=== PATIENT | female | born 1960 | race Caucasian/White ===

== ENCOUNTER 2019-12-14 09:24 | Emergency (ER) | payer OTHER ==
--- NOTE | 2019-12-14 09:28 | UC ---
Hand/Wrist HPI - HPI Summary HPI Summary: 59 yo female presents with LEFT thumb laceration. 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 Bandaged the area and came to . States last tetanus shot was decades ago. She is right handed. - History Of Current Complaint Stated Complaint: FINGER INJURY Time Seen by Provider: 12/14/19 09:28 Hx Obtained From: Patient Onset/Duration: Sudden Onset Severity Initially: Mild Severity Currently: Mild Pain Intensity: 2 Pain Scale Used: 0-10 Numeric - Allergies/Home Medications Allergies/Adverse Reactions: Allergies Allergy/AdvReac Type Severity Reaction Status Date / Time No Known Allergies Allergy Verified 12/14/19 09:30 Home Medications: Home Medications NK [No Home Medications Reported] 12/14/19 [History Confirmed 12/14/19] PMH/Surg Hx/FS Hx/Imm Hx - Additional Past Medical History Additional PMH: None - Surgical History Surgical History: Yes Surgery Procedure, Year, and Place: SPINAL FUSION - AGE 16 - SPONDOLYSIS - L4,L5 -S1 - Family History Known Family History: Positive: Cardiac Disease, Hypertension - Social History Lives: With Family Alcohol Use: Occasionally Substance Use Type: None Smoking Status (MU): Never Smoked Tobacco Review of Systems All Other Systems Reviewed And Are Negative: No Constitutional: Positive: Negative Skin: Positive: Other - Left thumb laceration Respiratory: Positive: Negative Cardiovascular: Positive: Negative Musculoskeletal: Positive: Negative Neurological: Positive: Negative Psychological: Positive: Negative Physical Exam - Summary Physical Exam Summary: GENERAL: NAD. WDWN. No pain distress. SKIN: LEFT THUMB: ulnar finger pad with 1.0cm macerated-like laceration with subcutaneous tissue exposed. No tendon or bony involvement appreciated. NECK: Supple. Nontender. No lymphadenopathy. CHEST: No accessory muscle use. Breathing comfortably and in no distress. CV: Pulses intact. Cap refill <2seconds NEURO: Alert. PSYCH: Age appropriate behavior. Triage Information Reviewed: Yes Vital Signs: Vital Signs: Temp Pulse Resp BP Pulse Ox 97 F 59 16 117/72 100 12/14/19 09:31 12/14/19 09:31 12/14/19 09:31 12/14/19 09:31 12/14/19 09:31 Vital Signs Reviewed: Yes Procedures - Laceration/Wound Repair 1 Location: upper extremity Description: Irregular Anesthesia: 2.0% Length, Depth and Shape: 1.0cm length Irrigated w/ Saline (ccs): 100 Laceration/Wound Explored: clean Closure: Single Layer Suture Type: Prolene - 5-0 Number of Sutures: 4 Layer Closure?: Yes Sterile Dressing Applied?: Yes Hand/Wrist Course/Dx - Course Course Of Treatment: The procedure was explained to the pt and all questions were answered. A time out was performed, witnessed, and signed. The area was irrigated with 20mL sterile saline. 1mL of 2% lidocaine without epi was administered and good anesthetization was achieved. The wound was explored. In the usual sterile fashion, FOUR 5-0 prolene interrupted sutures were placed. Homeostasis achieved. The wound was bandaged with telfa and tubegauze . Pt tolerated procedure well. tdap updated today - Differential Dx/Diagnosis Provider Diagnosis: Finger laceration Discharge ED - Sign-Out/Discharge Documenting (check all that apply): Patient Departure All imaging exams completed and their final reports reviewed: No Studies - Discharge Plan Condition: Stable Disposition: HOME Patient Education Materials: Care For Your Stitches (ED), Finger Laceration (ED ) Referrals: Janett Javier NP [Primary Care Provider] - Additional Instructions: 1) Please keep the area bandage, clean, dry, and intact for the next 24- 48hours. Then change the bandage daily until sutures are removed. 2) If you develop a fever, colored or thick discharge, increased pain or swelling - please call your PCP or return for a wound check. 3) Please return in 10-14 days to have your FOUR sutures removed. - Billing Disposition and Condition Condition: STABLE Disposition: Home
[2019-12-14 09:37] VITALS: BP 117/72
[2019-12-14] MEDS ORDERED: Lidocaine 2% PF * 5 ML VIAL INJ ONE (09:45)
[2019-12-14] MEDS ORDERED: Tetan/Diph/Pertus SYR(Tdap)* 0.5 ML SYR(BOOSTRIX) use SYR contains LATEX IM ONE (09:45)
== END 2019-12-14 10:48 | disposition home or self-care (01) ==
LOC: UCEAST 09:24
DX: S61.012A Laceration without foreign body of left thumb without damage to nail, initial encounter (principal); W31.89XA Contact with other specified machinery, initial encounter; Y92.9 Unspecified place or not applicable
CPT/HCPCS: 12001; 90715; 99213; G0463

== ENCOUNTER 2020-01-07 20:48 | Emergency (ER) | payer OTHER ==
[2020-01-07 21:17] VITALS: BP 111/70
--- NOTE | 2020-01-07 22:51 | UC ---
HPI Wound/Suture Re-check - HPI Summary HPI Summary: PATIENT HAD 4 SUTURES PLACED TO HER LEFT THUMB HERE IN THE UC ON 12/14/2019. IS HERE FOR SUTURE REMOVAL. STATES SHE WAITED SO LONG BECAUSE SHE WAS STILL HAVING DISCOMFORT. WOUND SEEMS TO BE HEALING WELL. NO DRAINAGE OR REDNESS. - History Of Current Complaint Chief Complaint: UCSkin Stated Complaint: SUTURE REMOVAL Time Seen by Provider: 01/07/20 21:12 Hx Obtained From: Patient Hx Last Menstrual Period: post Severity: Mild Pain Intensity: 1 Pain Scale Used: 0-10 Numeric - Allergies/Home Medications Allergies/Adverse Reactions: Allergies Allergy/AdvReac Type Severity Reaction Status Date / Time No Known Allergies Allergy Verified 01/07/20 21:17 Home Medications: Home Medications NK [No Home Medications Reported] 12/14/19 [History Confirmed 01/07/20] PMH/Surg Hx/FS Hx/Imm Hx Previously Healthy: Yes - Surgical History Surgical History: Yes Surgery Procedure, Year, and Place: SPINAL FUSION - AGE 16 - SPONDOLYSIS - L4,L5 -S1 - Family History Known Family History: Positive: Cardiac Disease, Hypertension - Social History Alcohol Use: Occasionally Substance Use Type: None Smoking Status (MU): Never Smoked Tobacco Review of Systems All Other Systems Reviewed And Are Negative: Yes Constitutional: Positive: Negative Skin: Positive: Other - HEALING LACERATION LEFT THUMB Respiratory: Positive: Negative Cardiovascular: Positive: Negative Gastrointestinal: Positive: Negative Physical Exam Triage Information Reviewed: Yes Appearance: Well-Appearing, No Pain Distress, Well-Nourished Vital Signs: Initial Vital Signs Temp 97.6 F 01/07/20 21:11 Pulse 62 01/07/20 21:11 Resp 16 01/07/20 21:11 BP 111/70 01/07/20 21:11 Pulse Ox 97 01/07/20 21:11 Vital Signs Reviewed: Yes Eyes: Positive: Conjunctiva Clear ENT: Positive: Hearing grossly normal Neck: Positive: Supple Respiratory: Positive: No respiratory distress, No accessory muscle use Cardiovascular: Positive: Pulses Normal Abdomen Description: Positive: Soft Musculoskeletal: Positive: ROM Intact, No Edema Neurological: Positive: Alert Psychological: Positive: Age Appropriate Behavior Skin: Positive: Other - HEALING LACERATION LEFT THUMB WITH [address] NO DRAINAGE OR SURROUNDING ERYTHEMA. MINIMALLY TENDER. Course/Dx - Course Course Of Treatment: 4 SUTURES REMOVED FROM LEFT THUMB WITHOUT DIFFICULTY. STERI-STRIPS APPLIED FOR REINFORCEMENT. - Diagnosis Provider Diagnosis: Encounter for removal of sutures Discharge ED - Sign-Out/Discharge Documenting (check all that apply): Patient Departure All imaging exams completed and their final reports reviewed: No Studies - Discharge Plan Condition: Stable Disposition: HOME Patient Education Materials: Stitches Removal (ED) Referrals: Janett Javier NP [Primary Care Provider] - If Needed Additional Instructions: YOUR 4 SUTURES WERE REMOVED TODAY WITHOUT DIFFICULTY. THE WOUND LOOKS TO BE HEALING APPROPRIATELY. STERI-STRIPS APPLIED FOR REINFORCEMENT. WITH TIME THE CRUST WILL SOFTEN AND EVENTUALLY FLAKE OFF. - Billing Disposition and Condition Condition: STABLE Disposition: Home
== END 2020-01-07 21:45 | disposition home or self-care (01) ==
LOC: UCEAST 20:48
DX: S61.012D Laceration without foreign body of left thumb without damage to nail, subsequent encounter (principal); X58.XXXD Exposure to other specified factors, subsequent encounter